=== PATIENT | female | born 1970 | race Caucasian/White ===

== ENCOUNTER 2017-03-21 05:32 | Inpatient (IN) | payer MEDICARE, BC ==
[2017-03-21] MEDS ORDERED: Neostigmine Methylsulfate 1 MG/ML 5 ML Syringe ONE (06:52)
[2017-03-21] MEDS ORDERED: Ondansetron 4 MG/2 ML SDV ONE (06:52)
[2017-03-21] MEDS ORDERED: Propofol 200 MG/20 ML SDV ONE (06:52)
[2017-03-21] MEDS ORDERED: Glycopyrrolate 0.2 MG/ML 5 ML MDV ONE (06:52)
[2017-03-21] MEDS ORDERED: Rocuronium 50 MG/5 ML Vial ONE ×2 (06:52→07:58)
[2017-03-21] MEDS ORDERED: Succinylcholine 200 MG/10 ML MDV ONE (06:52)
[2017-03-21] MEDS ORDERED: Dexamethasone 4 MG/ML SDV ONE (06:52)
[2017-03-21] MEDS ORDERED: Acetaminophen Soln 650 MG/20.3 ML UD Cup PO ONE (07:00)
[2017-03-21] MEDS ORDERED: Celecoxib 200 MG Cap PO ONE (07:00)
[2017-03-21] MEDS ORDERED: cefOXitin 2 GM in Sodium Chloride 0.9% 50 ML IV ONE ×2 (07:00→07:15)
[2017-03-21] MEDS ORDERED: Acetaminophen 500 MG Tab PO ONE (07:15)
[2017-03-21] MEDS ORDERED: Naloxone 0.4 MG/ML SDV IVPUSH PRN (07:20)
[2017-03-21] MEDS: Dextrose 5%-Lactated Ringers 1,000 ML IV SCH (07:24)
[2017-03-21] MEDS: HYDROmorphone/Normal Saline 15 MG/30 ML PCA IV PRN ×2 (07:27→18:52)
[2017-03-21] MEDS ORDERED: Meropenem 500 MG SDV ONE (07:41)
[2017-03-21] MEDS ORDERED: hydrOXYzine HCl 100 MG/2 ML SDV IM ONE (09:45)
[2017-03-21] MEDS ORDERED: Meperidine PF 100 MG/ML Syringe IM ONE (09:50)
[2017-03-21] MEDS ORDERED: INSULIN PUMP SUBCUT SCH (11:30)
[2017-03-21] MEDS ORDERED: Labetalol 20 MG/4 ML Syringe IVPUSH PRN (12:00)
[2017-03-21] MEDS ORDERED: SCOPOLAMINE PATCH ASK TOP SCH (12:00)
[2017-03-21] MEDS ORDERED: diphenhydrAMINE 50 MG/ML SDV IVPUSH PRN (12:00)
[2017-03-21] MEDS ORDERED: Metoclopramide 10 MG/2 ML SDV IVPUSH PRN (12:00)
[2017-03-21] MEDS ORDERED: Ondansetron 4 MG/2 ML SDV IVPUSH PRN (12:00)
[2017-03-21] MEDS ORDERED: Scopolamine 1.5 MG Transdermal Patch TOP PRN (12:21)
[2017-03-21] MEDS: cefOXitin 2 GM in Sodium Chloride 0.9% 50 ML IV SCH ×2 (13:43→19:21)
[2017-03-21] MEDS: Pantoprazole 40 MG Vial IVPUSH SCH (13:43)
[2017-03-21] MEDS: Lactated Ringers 1,000 ML IV SCH (15:22)
[2017-03-21] MEDS: Cyclobenzaprine 10 MG Tab PO PRN (16:09)
[2017-03-21] MEDS: Morphine 15 MG Tab.ER PO SCH ×2 (16:09→21:11)
[2017-03-21] MEDS: Acetaminophen 325 MG Tab PO SCH (16:09)
[2017-03-21] MEDS ORDERED: LORazepam 0.5 MG Tab PO PRN (17:16)
[2017-03-21] MEDS ORDERED: Gabapentin 300 MG Cap PO ONE (17:40)
[2017-03-21] MEDS: MVI, Adult with Vitamin K 10 ML, Thiamine 200 MG, Chromium/Copper/Mang/Selen/Zn 1 ML in... IV SCH ×4 (17:53)
[2017-03-21] MEDS: hydrOXYzine HCl 100 MG/2 ML SDV IM PRN (19:21)
[2017-03-21] MEDS: Acetaminophen 1,000 MG in Premix Bag 1 BAG IV SCH (21:13)
[2017-03-21] MEDS: Timolol Maleate 0.5% Ophth Soln 5 ML Bottle EYEBOTH SCH (21:14)
[2017-03-21] MEDS: cycloSPORINE Ophth Drops U/D Box of 30 EYEBOTH SCH (21:14)
[2017-03-21] MEDS: FENTANYL PATCH CHECK TOP SCH (21:16)
[2017-03-21] MEDS: Gabapentin 300 MG Cap PO SCH (21:16)
[2017-03-22] MEDS: cefOXitin 2 GM in Sodium Chloride 0.9% 50 ML IV SCH (01:09)
[2017-03-22] MEDS: Dextrose 5%-Lactated Ringers 1,000 ML IV SCH (01:10)
[2017-03-22] MEDS: Lactated Ringers 1,000 ML IV SCH (01:10)
[2017-03-22] MEDS ORDERED: Iohexol 647 MG/ML 50 ML SDV PO STA (03:40)
[2017-03-22] MEDS: Acetaminophen 1,000 MG in Premix Bag 1 BAG IV SCH (03:48)
[2017-03-22] MEDS: hydrOXYzine HCl 100 MG/2 ML SDV IM PRN (04:23)
[2017-03-22] MEDS: Morphine 15 MG Tab.ER PO SCH ×4 (06:16→21:49)
[2017-03-22] MEDS ORDERED: Benzocaine/Cetylpyridinium/Menthol Lozenge MUCMEM PRN (07:53)
[2017-03-22] MEDS ORDERED: Lidocaine 5% 700 MG Patch TRDERM PRN (07:56)
[2017-03-22] MEDS ORDERED: LORazepam 0.5 MG Tab PO PRN (07:56)
[2017-03-22] MEDS ORDERED: Metoclopramide 5 MG Tab PO PRN (07:56)
[2017-03-22] MEDS ORDERED: Lactated Ringers 1,000 ML IV SCH (07:56)
[2017-03-22] MEDS ORDERED: Nystatin Crm 30 GM Tube TOP PRN (07:56)
[2017-03-22] MEDS ORDERED: fentaNYL 75 MCG/HR Transdermal Patch TRDERM SCH (08:00)
[2017-03-22] MEDS: Gabapentin 300 MG Cap PO SCH ×3 (08:17→20:32)
[2017-03-22] MEDS: Celecoxib 200 MG Cap PO SCH (08:19)
[2017-03-22] MEDS: cycloSPORINE Ophth Drops U/D Box of 30 EYEBOTH SCH ×2 (08:23→20:31)
[2017-03-22] MEDS: SCOPOLAMINE PATCH CHECK TOP SCH (08:25)
[2017-03-22] MEDS: FENTANYL PATCH CHECK TOP SCH ×2 (08:26→20:29)
[2017-03-22] MEDS ORDERED: cycloSPORINE Ophth Drops U/D Box of 30 EYEBOTH SCH (09:00)
[2017-03-22] MEDS ORDERED: Gabapentin 100 MG Cap PO SCH (09:00)
--- NOTE | 2017-03-22 09:17 | PN ---
DATE OF SERVICE: 03/22/2017 SUBJECTIVE: Pilar is postop day 1. Her pain is controlled. She has several questions, would like to start on MiraLAX and would also like the D5 LR changed to just LR, so she can better manage her blood sugars. REVIEW OF SYSTEMS: Remainder of review of systems was negative for any pertinent positives and negatives. OBJECTIVE: GENERAL: Pilar Quezada is a 46-year-old female. She is alert and orientated. VITAL SIGNS: TPR is 96.8, 85, 16, and blood pressure 146/85. HEENT: Negative. NECK: Supple. HEART: Regular rate and rhythm. LUNGS: Clear. ABDOMEN: Dressings dry and intact. Abdominal binder is on. Paz catheter is in place and draining a light nathalie urine. EXTREMITIES: Without peripheral edema. ASSESSMENT: Exploratory laparotomy, lysis of adhesions, and reduction of small bowel volvulus, small bowel resection and revision of the jejunostomy component of the Loli-en-Y gastric bypass surgery, repair of recurrent incarcerated incisional and umbilical hernias and placement of Vicryl mesh for recurrent incarcerated incisional and umbilical hernia, partial small bowel obstruction secondary to small bowel volvulus, focal ischemia over small bowel and takedown of adhesions, and examination postoperatively to evaluate right inguinal hernia and was negative for any inguinal hernia. Ferritin of 12. PLAN: 1. Venofer 500 mg daily x2 for ferritin of 12. 2. Renew fentanyl patches 75 mg x2. 3. Step-4 gastric bypass diet. 4. Schedule and have consent signed for delayed primary closure, IV sedation, 03/23/2017. Tacos Riggs MD, n.p.o. after midnight. 5. Leave Paz catheter in for accurate urinary output. 6. MiraLAX 19 grams p.o. b.i.d. 7. Ambien 10 mg at bedtime. 8. Cepacol throat lozenges use as directed at bedside p.r.n. sore throat. Home medications were restarted. 9. We will evaluate p.r.n. or in a.m. Mitzi Marr PA-C /[id number]
--- NOTE | 2017-03-22 09:32 | CR ---
UGI wo KUB HISTORY: eval GBP RNY FINDINGS: Limited upper GI series was obtained without fluoroscopy. Water-soluble contrast was admin istered orally. Immediate along with 15 minute delayed images were obtained. Small gastric pouch is demonstrated. Contrast passes readily through the gastrojejunostomy into loops of jejunum. No obstru ction is identified. There is no contrast extravasation. Old vertebroplasty changes are noted T12 vertebral body. There is moderate fecal material throughout the colon. Bony structures are osteopenic. IMPRESSION: No postoperative complication identified status post Loli-en-Y gastric bypass.
[2017-03-22] MEDS: Aspirin 81 MG Tab.Chew PO SCH (09:40)
[2017-03-22] MEDS: Losartan 50 MG Tab PO SCH (09:40)
[2017-03-22] MEDS: Furosemide 40 MG Tab PO SCH (09:41)
[2017-03-22] MEDS: Polyethylene Glycol 3350 Powder 17 GM Packet PO SCH ×2 (09:41→20:32)
[2017-03-22] MEDS: Timolol Maleate 0.5% Ophth Soln 5 ML Bottle EYEBOTH SCH ×2 (09:41→20:37)
[2017-03-22] MEDS: Iron Sucrose Complex 500 MG in Sodium Chloride 0.9% 250 ML IV SCH (09:45)
[2017-03-22] MEDS: Acetaminophen 325 MG Tab PO SCH ×3 (10:10→21:51)
[2017-03-22] MEDS: Cyclobenzaprine 10 MG Tab PO PRN ×2 (10:13→18:17)
[2017-03-22] MEDS: Pantoprazole 40 MG Vial IVPUSH SCH (14:55)
[2017-03-22] MEDS: HYDROmorphone/Normal Saline 15 MG/30 ML PCA IV PRN (16:54)
[2017-03-22] MEDS: MVI, Adult with Vitamin K 10 ML, Thiamine 200 MG, Chromium/Copper/Mang/Selen/Zn 1 ML in... IV SCH ×8 (16:55→17:49)
[2017-03-22] MEDS: MVI, Adult with Vitamin K 10 ML, Chromium/Copper/Mang/Selen/Zn 1 ML, Thiamine 200 MG in... IV SCH ×4 (17:53)
[2017-03-22] MEDS: Zolpidem 5 MG Tab PO SCH (21:49)
[2017-03-23] MEDS: Acetaminophen 325 MG Tab PO SCH ×4 (04:08→22:09)
[2017-03-23] MEDS: Morphine 15 MG Tab.ER PO SCH ×4 (05:27→22:07)
[2017-03-23] MEDS: Cyclobenzaprine 10 MG Tab PO PRN (05:31)
[2017-03-23] MEDS ORDERED: Dextrose 5%-Lactated Ringers 1,000 ML IV SCH ×2 (06:30→09:15)
[2017-03-23] MEDS ORDERED: Lidocaine 1% with EPINEPHrine 1:100,000 50 ML MDV ONE (06:53)
[2017-03-23] MEDS ORDERED: Meropenem 500 MG SDV ONE (06:53)
[2017-03-23] MEDS ORDERED: Bupivacaine 0.5% 50 ML MDV ONE (06:53)
[2017-03-23] MEDS ORDERED: fentaNYL 100 MCG/2 ML SDV ONE (07:06)
[2017-03-23] MEDS ORDERED: Midazolam 1 MG/ML 2 ML SDV ONE (07:06)
[2017-03-23] MEDS ORDERED: Propofol 200 MG/20 ML SDV ONE ×2 (07:06→07:45)
--- NOTE | 2017-03-23 08:42 | PN ---
DATE OF SERVICE: 03/21/2017 SUBJECTIVE: Pilar Quezada is n.p.o. She will be having a delayed primary closure today. IV was changed to D5 LR to avoid any hypoglycemia. Pain has been managed. She has been ambulating. Vital signs have been stable. OBJECTIVE: GENERAL: Pilar Quezada is a 46-year-old female. She is alert and oriented: SKIN: Warm and dry. VITAL SIGNS: TPR 98.4, 93, 15. Blood pressure 138/68. HEENT: Negative. NECK: Supple. HEART: Regular rate and rhythm. LUNGS: Clear. ABDOMEN: Dressings are dry and intact. Abdominal binder is on. EXTREMITIES: Without peripheral edema. ASSESSMENT: Exploratory laparotomy with lysis of adhesion and reduction of small bowel volvulus, small bowel resection and revision of the jejunostomy component of the Loli-en-Y gastric bypass surgery, repair of recurrent incarcerated incisional umbilical hernia, and placement of Vicryl mesh. Date of surgery is 03/21/2017. PLAN: Orders to be written after delayed primary closure. Mitzi Marr PA-C /[id number]
[2017-03-23] MEDS ORDERED: fentaNYL 75 MCG/HR Transdermal Patch TRDERM SCH (09:00)
[2017-03-23] MEDS ORDERED: Cyanocobalamin (Vitamin B12) 1,000 MCG/ML SDV IM ONE (09:00)
[2017-03-23] MEDS: Polyethylene Glycol 3350 Powder 17 GM Packet PO SCH ×2 (09:04→20:26)
[2017-03-23] MEDS: cycloSPORINE Ophth Drops U/D Box of 30 EYEBOTH SCH ×2 (09:04→20:31)
[2017-03-23] MEDS: Timolol Maleate 0.5% Ophth Soln 5 ML Bottle EYEBOTH SCH ×2 (09:05→22:06)
[2017-03-23] MEDS: Furosemide 40 MG Tab PO SCH (09:05)
[2017-03-23] MEDS: Gabapentin 300 MG Cap PO SCH ×3 (09:06→20:29)
[2017-03-23] MEDS: Celecoxib 200 MG Cap PO SCH (09:07)
[2017-03-23] MEDS: Aspirin 81 MG Tab.Chew PO SCH (09:08)
[2017-03-23] MEDS: FENTANYL PATCH CHECK TOP SCH ×2 (09:08→20:30)
[2017-03-23] MEDS: SCOPOLAMINE PATCH CHECK TOP SCH (09:10)
[2017-03-23] MEDS: Losartan 50 MG Tab PO SCH (09:18)
[2017-03-23] MEDS ORDERED: Polyethylene Glycol 3350 Powder 119 GM Bottle PO ONE ×2 (10:00→20:00)
[2017-03-23] MEDS: Iron Sucrose Complex 500 MG in Sodium Chloride 0.9% 250 ML IV SCH (10:11)
[2017-03-23] MEDS: Pantoprazole 40 MG Vial IVPUSH SCH (11:51)
[2017-03-23] MEDS ORDERED: Pneumococcal Polyvalent-23 Vaccine 0.5 ML SDV IM ONE (14:00)
[2017-03-23] MEDS: Bacitracin Oint 28.35 GM Tube TOP PRN (14:26)
[2017-03-23] MEDS: MVI, Adult with Vitamin K 10 ML, Chromium/Copper/Mang/Selen/Zn 1 ML, Thiamine 200 MG in... IV SCH ×4 (16:09)
[2017-03-23] MEDS ORDERED: Ondansetron 4 MG Tab.DIS PO PRN (16:40)
[2017-03-23] MEDS ORDERED: diphenhydrAMINE 25 MG Cap PO PRN (16:40)
[2017-03-23] MEDS ORDERED: Bisacodyl 10 MG Supp RECTAL PRN (18:42)
[2017-03-23] MEDS: Zolpidem 5 MG Tab PO SCH (22:06)
[2017-03-24] MEDS: Acetaminophen 325 MG Tab PO SCH ×2 (04:19→09:51)
[2017-03-24] MEDS: Morphine 15 MG Tab.ER PO SCH ×2 (07:11→09:51)
[2017-03-24] MEDS: cycloSPORINE Ophth Drops U/D Box of 30 EYEBOTH SCH (08:56)
[2017-03-24] MEDS: Bacitracin Oint 28.35 GM Tube TOP PRN (08:57)
[2017-03-24] MEDS: Timolol Maleate 0.5% Ophth Soln 5 ML Bottle EYEBOTH SCH (08:57)
[2017-03-24] MEDS: Aspirin 81 MG Tab.Chew PO SCH (08:58)
[2017-03-24] MEDS: Losartan 50 MG Tab PO SCH (08:58)
[2017-03-24] MEDS: Gabapentin 300 MG Cap PO SCH ×2 (08:58→13:31)
[2017-03-24] MEDS: FENTANYL PATCH CHECK TOP SCH (08:59)
[2017-03-24] MEDS: Furosemide 40 MG Tab PO SCH (08:59)
[2017-03-24] MEDS: Celecoxib 200 MG Cap PO SCH (08:59)
[2017-03-24] MEDS ORDERED: Ferrous Fumarate/Vitamin C 200-125 MG Tab PO SCH (09:00)
[2017-03-24] MEDS: SCOPOLAMINE PATCH CHECK TOP SCH (09:00)
[2017-03-24] MEDS: Acetaminophen/HYDROcodone 325-5 MG Tab PO PRN ×2 (09:05→13:31)
[2017-03-24] MEDS: Polyethylene Glycol 3350 Powder 17 GM Packet PO SCH (09:12)
[2017-03-24 11:35] VITALS: BP 139/84
--- NOTE | 2017-03-25 01:27 | DISCH ---
ADMISSION DIAGNOSES: Incisional hernia, partial small bowel obstruction, type 1 diabetes, chronic renal failure, hypothyroidism, depression, history of right pubic rami fracture, history of osteomyelitis resulting in 5th toe amputation, SP Loli-en-Y gastric bypass surgery, unspecified surgical malabsorption, and B12 deficiency. Peripheral neuropathy with Charcot foot, depression, chronic pain. DISCHARGE DIAGNOSES: Exploratory laparotomy with lysis of adhesion and reduction of small bowel volvulus, small bowel resection, and revision of the jejunostomy component of the Loli- en-Y gastric bypass surgery, repair of recurrent incarcerated incisional hernia, umbilical hernia, and placement of Vicryl mesh. Date of surgery 03/21/2017. HISTORY: Pilar is a 46-year-old female with incarcerated incisional and umbilical hernias and postprandial abdominal pain. After preoperative evaluation, discussion of possible risks and possible complications, she wished to proceed with surgical procedure. HOSPITAL COURSE: Pilar had her surgery on 03/21/2017 with a delayed primary closure on 03/23/2017. She had no operative complications. Her pain is controlled. Vital signs were stable. Blood sugars were managed and she was able to be discharged to home on 03/24/2017. PHYSICAL EXAMINATION: GENERAL: Pilar is a 46-year-old female. VITAL SIGNS: Height is 5 feet 8.9 inches, weight is 183 pounds. TPR is 98.1, 103, 16. Blood pressure 121/66. HEENT: Negative. NECK: Supple. HEART: Regular rate and rhythm. LUNGS: Clear. ABDOMEN: Incision is stapled, looks good. She has a midline incisional ROD drain draining a light pink serous drainage. The last 24 hours, her ROD drain put out 10 mL. EXTREMITIES: Without peripheral edema. DISPOSITION: Discharged to home. CONDITION: Stable and improving. FOLLOWUP: With Mitzi Marr PA-C, on 04/04/2017 at 10:00 a.m. She is to call the RN nurse line at [phone] if any questions. Follow up in two months for anemia profile labs. MEDICATIONS: New prescription; Celebrex 200 mg p.o. daily for 14 days. She is to continue her home medications; acetaminophen, aspirin, caffeine pain reliever plus, one tab every 6 hours p.r.n., [place] 5/325 mg 1 to 2 every 4 hours p.r.n. pain, aspirin 81 mg daily, calcium citrate one tablet oral daily, calcium carbonate one tablet daily, calcium, vitamin D3 5000 units daily, vitamin B12 1000 mcg IM every seven days, Flexeril 10 mg oral daily, vitamin D2 50,000 oral weekly, Lasix 40 mg oral daily, Neurontin 600 mg oral 3 times a day, insulin per insulin pump as directed, Ativan 0.5 p.r.n. anxiety, Lidoderm 700 topical as directed p.r.n., Cozaar 50 mg oral daily, Reglan 5 mg 3 times a day, MS Contin 15 mg oral 3 times a day, Nystatin cream one twice daily, omega-3 1200 mg oral daily, MiraLAX 17 g oral daily, progesterone 150 IM q.3 months, Imitrex 50 mg oral p.r.n. headache, testosterone applicator as directed, Timolol ophthalmic solution use as directed, Ambien 10 mg oral at bedtime, Restasis one drop both eyes, fentanyl patch 150 mg transderm every 72 hours, hydroxyzine 25 mg. DIET: Usual diet as tolerated. Drink 8 to 10 glasses a day. ACTIVITY: No lifting greater than 10 pounds for 6 weeks[address] Driving, do not drive on pain medication. Shower bathing, may shower. Notify provider if any fever, increased pain, nausea, or vomiting. Keep site clean and dry. Wear abdominal binder for 6 weeks and as tolerated. Use incentive spirometer 10 times every hour while awake. Strip, empty, measure, record ROD drains 4 times a day and bring record of drainage to clinic appointment. Start vitamin C one twice daily for anemia. Iron deficiency anemia, received Venofer 500 mg IV x2.
--- NOTE | 2017-03-26 17:39 | HP ---
The patient has been afebrile with stable vital signs. Oral intake is fairly good. Blood sugar levels remained satisfactory. Urine output has been quite high delayed primary closure today. We will work on getting involved, we will give medication. Paz catheter will come out and as we increase her activity level. Tacos Riggs MD /[id number]
--- NOTE | 2017-03-28 09:34 | OR ---
DATE OF PROCEDURE: 03/23/2017 PREOPERATIVE DIAGNOSIS: Open abdominal incision. POSTOPERATIVE DIAGNOSIS: Open abdominal incision. OPERATIVE PROCEDURE: Delayed primary closure of abdominal incision. ANESTHESIA: Local plus IV sedation. INDICATION FOR PROCEDURE: The patient is 48 hours status post complex open procedures through a midline incision. The skin and subcutaneous tissue were felt to be at high risk for wound infection if they were left open, and given this, the patient will undergo a delayed primary closure at this time. Potential risks including bleeding and infection were reviewed, and the patient wishes to proceed. DETAILS OF PROCEDURE: The patient was taken to the operating room. After IV sedation was administered, the operative dressing was taken down, while the patient received ongoing IV sedation. The incision was inspected and found to be clean. The wound was then prepped and draped, anesthetized with 1% lidocaine mixed with Marcaine, and irrigated with meropenem- containing saline solution. A 10-round Aneesh-Barrios drain was then placed through stab wound inferior to the incision, and this was sutured with a 3-0 Vicryl stitch. The incision was then closed with a deeper layer of 3-0 Vicryl stitch and more superficial 4-0 Vicryl stitch and johan. Dressing was applied. The patient was taken to the recovery room in satisfactory condition. Tacos Riggs MD /[id number]
--- NOTE | 2017-03-28 11:58 | OR ---
DATE OF PROCEDURE: 03/21/2017 PREOPERATIVE DIAGNOSES: 1. Probable partial small bowel obstruction due to #2. 2. Recurrent incarcerated incisional hernia. POSTOPERATIVE DIAGNOSES: 1. Recurrent incarcerated incisional hernia, along with incarcerated umbilical hernia. 2. Partial small bowel obstruction secondary to small bowel volvulus. 3. Focal ischemic area of small bowel adjacent to the jejunojejunostomy, status post takedown of adhesions. OPERATIVE PROCEDURE: 1. Exploratory laparotomy with lysis of adhesions and reduction of small bowel volvulus (94302). 2. Small bowel resection with revision of the jejunojejunostomy component of Loli-en-Y gastric bypass (88683). 3. Repair of recurrent incarcerated incisional hernia (40471). 4. Repair of incarcerated umbilical hernia (32992). 5. Placement of Vicryl mesh to displace small bowel from the pelvic abdominal londono to limit recurrent adhesion formation (23733). ANESTHESIA: General. ADOBE LAYER: Mitzi Marr PA-C. INDICATIONS FOR PROCEDURE: This is a 46-year-old presenting with symptoms suggestive of partial small bowel obstruction. The patient is having postprandial crampy abdominal pain and bloating. She also has recurrence of a hernia in the midline incision. Plan is to proceed with exploratory laparotomy with lysis of adhesions, bowel resection as necessary, along with repair of the hernias. Mesh will be used if the bowel is not needed to be resected. Otherwise, hernias will be repaired primarily. Potential risks of procedure including bleeding, infection, leaks from various GI tract closures, problems with recurrence of the problem over time in terms of both bowel obstruction and hernias were all gone over, along with the remote possibility of cardiopulmonary, septic, or hemorrhagic complications leading to , and the patient wishes to proceed. DESCRIPTION OF PROCEDURE: The patient was taken to the operating room and placed in a supine position. After general endotracheal anesthesia was induced, a Paz catheter was inserted and the abdomen prepped and draped. The previous midline incision was then reused. A small ellipse of thinned out skin over the hernia was excised in order to facilitate more adequate closure at the skin level. As one entered the peritoneal cavity, the above findings were noted. The patient had quite extensive adhesions with essentially all the small bowel being involved in adhesions. As one dissected, it became evident, the jejunojejunostomy was involved in a volvulus, more or less created by adhesions rather than a mesenteric defect per se. This was gradually reduced. During the course of that reduction, there was some ischemic changes present within the distalmost Loli limb adjacent to the jejunojejunostomy. The patient had some incarcerated component of the incisional hernia and also an additional umbilical hernia, which had incarcerated component as well. Of note, the patient clearly did not have any inguinal hernias. There was some question of about that preoperatively. After evaluation of the small bowel status as discussed with the patient preoperatively, the ischemic area of the distal limb was excised, and the jejunojejunostomy was revised in a more distal pattern with the final Loli limb being 120 cm and the final common limb being a 200 cm. This should improve insulin resistance to some degree, as well as have the patient have somewhat more frequent looser bowel movements, which, in this patient, would likely be beneficial, given her quite severe chronic constipation. As discussed with the patient preoperatively, the more distal configuration of the jejunojejunostomy would require a little bit more vigilant management of her vitamins and minerals and general nutritional status. After the small bowel dissection had been completed as noted above, the hernias had been reduced, and the small bowel proximal to the jejunojejunostomy was then divided proximally and distally with EDUARD stapler more or less flush with the anastomosis and the underlying mesentery divided with mesenteric johan. Small bowel specimen was then delivered from the field. The small bowel was then traced back from the ileocecal valve 200 cm, and at that point, the Loli limb was anastomosed to the bowel at that level with an internal firing of the Endo-EDUARD vascular stapler and the common opening closed with purple loads, angles anastomosed, and the mesenteric defect approximated with some 2-0 silk stitch. At this point, the abdomen was irrigated with antibiotic-containing saline solution. The decision was confirmed not to use any permanent mesh, given the open bowel. A Vicryl mesh was then placed, this being a 12-inch segment, down along the pelvic sidewalls and up against the abdominal wall to limit recurrent adhesion formation. Following this, the midline fascia was approximated with #2 Vicryl stitch. The hernia sacs had previously been dissected free and delivered from the field, and the hernias were closed as part of the midline closure. The skin and subcutaneous tissue were left open for planned delayed primary closure in 48 hours. The patient was taken to the recovery room in satisfactory condition. Tacos Riggs MD /[id number]
[2017-03-30] MEDS ORDERED: Cyanocobalamin (Vitamin B12) 1,000 MCG/ML SDV IM SCH (09:00)
== END 2017-03-24 13:52 | disposition home or self-care (01) | DRG 326 ==
LOC: JP.SDS 05:32 → JP.MS 05:32 → JP.2SS 10:15 → EDSTATUS 15:40
PROVIDERS: ADMIT Surgery; ATTEND Surgery
PROC: 0DB80ZZ Excision of Small Intestine, Open Approach (ICD-10-PCS; principal; 2017-03-21)
PROC: 0D160ZA Bypass Stomach to Jejunum, Open Approach (ICD-10-PCS; 2017-03-21)
PROC: 0WUF0JZ Supplement Abdominal Wall with Synthetic Substitute, Open Approach (ICD-10-PCS; 2017-03-21)
PROC: 0DNW0ZZ Release Peritoneum, Open Approach (ICD-10-PCS; 2017-03-21)
PROC: 0DSA0ZZ Reposition Jejunum, Open Approach (ICD-10-PCS; 2017-03-21)
PROC: 0WQFXZZ Repair Abdominal Wall, External Approach (ICD-10-PCS; 2017-03-23)
DX: K43.0 Incisional hernia with obstruction, without gangrene (principal); K56.2 Volvulus; K42.0 Umbilical hernia with obstruction, without gangrene; E10.9 Type 1 diabetes mellitus without complications; N18.9 Chronic kidney disease, unspecified; E03.9 Hypothyroidism, unspecified; F32.9 Major depressive disorder, single episode, unspecified; E53.8 Deficiency of other specified B group vitamins; E10.42 Type 1 diabetes mellitus with diabetic polyneuropathy; E10.610 Type 1 diabetes mellitus with diabetic neuropathic arthropathy; G89.29 Other chronic pain; Z79.4 Long term (current) use of insulin; Z79.899 Other long term (current) drug therapy; Z98.84 Bariatric surgery status
CPT/HCPCS: 36415; 74240; 74240-26; 80048; 82728; 82962; 83735; 84100; 88302; 88307; A9270-GY; C1781; C9113; J0131; J0330; J0694; J1100; J1170; J1756; J2175; J2185; J2250; J2405; J2704; J2710; J3010; J3410; J3411; J3420; J7042; J7050; J7120; Q9967